=== PATIENT | female | born 1975 | race Caucasian/White ===

== ENCOUNTER 2019-08-26 11:41 | Emergency (ER) | payer OTHER ==
[~2019-08-26] VITALS: Ht 165.1 cm; Wt 98.4 kg
[~2019-08-26 11:41] MED LIST: CIPROFLOXA500 MG/51; DICY20TA
[2019-08-26] MEDS ORDERED: SINGULAIR10 MG (11:54)
== END 2019-08-26 14:48 | disposition home or self-care (01) ==
LOC: ER 11:41
DX: M94.0 Chondrocostal junction syndrome [Tietze] (principal); F41.8 Other specified anxiety disorders